=== PATIENT | female | born 1985 | race Caucasian/White ===

== ENCOUNTER 2016-11-29 16:54 | Emergency (ER) | payer SELFPAY ==
[~2016-11-29] VITALS: Ht 172.7 cm; Wt 121.8 kg
[~2016-11-29 16:54] MED LIST: AUGMENTIN875 MG PO; METFORMIN HCL500 M1 PO; MOTRIN600 MG PO; OMEPRAZOLE40 M1 PO; SPRINTEC1 EACH PO; TESSALON PERLE100 MG PO; TRAMADOL HCL50 MG PO; VENTOLIN HFA18 GM IH; ZITHROMAX250 MG PO
[2016-11-29] MEDS ORDERED: PREDNISONE20 MG PO (18:50)
[2016-11-29] MEDS ORDERED: KEFLEX500 MG PO (18:50)
[2016-11-29] MEDS ORDERED: KENALOG,ARISTOC80 G1 TP (18:50)
[2016-11-29 18:58] VITALS: BP 135/86
== END 2016-11-29 19:00 | disposition home or self-care (01) ==
LOC: EME 16:54
DX: R21 Rash and other nonspecific skin eruption (principal)
CPT/HCPCS: 99281; 99282

== ENCOUNTER 2017-05-20 17:58 | Emergency (ER) | payer OTHER ==
[~2017-05-20] VITALS: Ht 172.7 cm; Wt 116.8 kg
[~2017-05-20 17:58] MED LIST changes: +KEFLEX500 MG PO; +KENALOG,ARISTOC80 G1 TP; +PREDNISONE20 MG PO
[2017-05-20] MEDS ORDERED: NORCO 5/3251 TABLET PO (20:44)
[2017-05-20] MEDS ORDERED: MOTRIN600 MG PO (20:53)
[2017-05-20 21:12] VITALS: BP 112/63
== END 2017-05-20 21:12 | disposition home or self-care (01) ==
LOC: EME 17:58
DX: S43.401A Unspecified sprain of right shoulder joint, initial encounter (principal); W19.XXXA Unspecified fall, initial encounter; Y99.0 Civilian activity done for income or pay; Z79.84 Long term (current) use of oral hypoglycemic drugs; Z79.891 Long term (current) use of opiate analgesic
CPT/HCPCS: 73030; 99281; 99284